=== PATIENT | female | born 1970 | race Two or more races ===

== ENCOUNTER 2024-06-19 05:29 | Day surgery (SDC) | payer OTHER ==
[2024-06-07 13:40] VITALS: BP 138/83
[~2024-06-19] VITALS: Ht 157.5 cm; Wt 87.1 kg
[~2024-06-19 05:29] MED LIST: METFORMIN HCL500 M3 PO
[2024-06-19] MEDS ORDERED: CEFTRIAXONE SODIUM 2,000 MG VIAL ONE (06:47)
[2024-06-19] MEDS ORDERED: ENOXAPARIN SODIUM 40 MG/0.4 ML SYRINGE SUBCUTANEO ONE ×2 (06:47→07:15)
[2024-06-19] MEDS ORDERED: BUPIVACAINE HCL/MPF 0.5% 30ML VIAL ONE (06:48)
[2024-06-19] MEDS ORDERED: DIPHENHYDRAMINE HCL 50 MG/ML VIAL 1ML ONE (07:08)
[2024-06-19] MEDS ORDERED: DIPHENHYDRAMINE HCL 50 MG/ML VIAL 1ML IV ONE (07:15)
[2024-06-19] MEDS ORDERED: BUPIVACAINE HCL 30 ML VIAL IJ ONE (07:15)
[2024-06-19] MEDS ORDERED: CEFTRIAXONE SODIUM 2,000 MG VIAL IV ONE (07:15)
[2024-06-19] MEDS ORDERED: NEURONTIN300 MG PO (09:41)
[2024-06-19] MEDS ORDERED: CELEBREX200MG PO (09:42)
== END 2024-06-19 11:50 | disposition home or self-care (01) ==
LOC: CIR.AMB 05:29
PROVIDERS: ATTEND Surgery
DX: K80.20 Calculus of gallbladder without cholecystitis without obstruction (principal); Z88.5 Allergy status to narcotic agent; Z91.013 Allergy to seafood; E11.9 Type 2 diabetes mellitus without complications; H52.4 Presbyopia; J32.9 Chronic sinusitis, unspecified